=== PATIENT | male | born 1955 | race Caucasian/White ===

== ENCOUNTER 2017-03-22 10:56 | Emergency (ER) | payer OTHER ==
[2017-03-22 12:24] VITALS: BP 116/59
[2017-03-22] MEDS ORDERED: Insulin REGULAR(*) 1 UNITS UNIT SUBCUT ONE (13:06)
--- NOTE | 2017-03-22 13:11 | UC ---
General HPI - HPI Summary HPI Summary: 61 yo gentleman c/o "my legs hurt." Hx DM, HTN. C/o progressively worse redness and sores to both legs, since a couple weeks. Has been taking cephalexin per pcp x approx 13 days. Had similar event in December, improved with cephalexin, but this has not. No fever /chills perse. No sob / cp / palpitations. Hx chronic abd hernia, unchanged, not painful. Denies night- time arterial type claudication, but reports that his legs are hurting while sitting in his chair. Has been using mupirocin, but ran out. Has taken tramadol, to no avail. No report change in urinary habit. - History of Current Complaint Chief Complaint: Azael Stated Complaint: SORES ON LEGS-DIABETIC Time Seen by Provider: 03/22/17 12:14 Hx Obtained From: Patient - Allergy/Home Medications Allergies/Adverse Reactions: Allergies Allergy/AdvReac Type Severity Reaction Status Date / Time Lactose Intolerance (GI) Allergy GI Upset Verified 03/22/17 12:11 Latex Allergy Rash Verified 03/22/17 12:11 [place] Allergy See Comment Verified 03/22/17 12:11 Home Medications: Home Medications Amphetamine MIXED SALTS TAB* [Adderall TAB*] 30 mg PO DAILY 03/22/17 [History Confirmed 03/22/17] Atenolol TAB* [Tenormin TAB* 50 MG] 100 mg PO BEDTIME 03/22/17 [History Confirmed 03/22/17] Atorvastatin* [Lipitor*] 20 mg PO QPM 03/22/17 [History Confirmed 03/22/17] Cephalexin CAP* [Keflex CAP*] 500 mg PO QID 03/22/17 [History Confirmed 03/22/17 ] Furosemide TAB* [Lasix TAB*] 20 mg PO DAILY 03/22/17 [History Confirmed 03/22/17 ] Hydrocortisone 1% CREAM* [Hytone Cream 1%*] 1 applic TOPICAL BID 03/22/17 [ History Confirmed 03/22/17] Insulin GLARGINE(*) [Lantus(*)] 70 units SUBCUT BID 03/22/17 [History Confirmed 03/22/17] Insulin LISPRO* [HumaLOG*] 0 units SUBCUT DIRECTED 03/22/17 [History Confirmed 03/22/17] Lisinopril TAB* [Prinivil TAB*] 5 mg PO BEDTIME 03/22/17 [History Confirmed ] Mupirocin 2% CREAM* [Bactroban 2% CREAM*] 1 applic TOPICAL DAILY 03/22/17 [ History Confirmed 03/22/17] Pregabalin CAP(*) [Lyrica CAP(*)] 200 mg PO BID 03/22/17 [History Confirmed ] QUEtiapine TAB* [SEROquel TAB*] 900 mg PO BEDTIME 03/22/17 [History Confirmed ] traMADol TAB* [Ultram*] 50 mg PO Q12H PRN 03/22/17 [History Confirmed 03/22/17] PMH/Surg Hx/FS Hx/Imm Hx Previously Healthy: No - see hpi. previous admission 2/2 dka last year. - Surgical History Surgical History: Yes Surgery Procedure, Year, and Place: pyloric stenosis - Social History Alcohol Use: None Substance Use Type: None Smoking Status (MU): Never Smoked Tobacco Review of Systems Constitutional: Fatigue Skin: Rash Eyes: Negative ENT: Negative Respiratory: Negative Cardiovascular: Negative Gastrointestinal: Negative Genitourinary: Negative Motor: Negative Neurovascular: Negative Musculoskeletal: Edema, Other: - see hpi Neurological: Other - no issues reported Psychological: Negative Is Patient Immunocompromised?: Yes - hx dm All Other Systems Reviewed And Are Negative: Yes Physical Exam Triage Information Reviewed: Yes Appearance: Well-Nourished - sitting up. conversing easily and appropriately. NAD., Obese Vital Signs: Initial Vital Signs Temp 97.9 F 03/22/17 12:17 Pulse 75 03/22/17 12:17 Resp 16 03/22/17 12:17 BP 116/59 03/22/17 12:17 Pulse Ox 95 03/22/17 12:17 Vital Signs Reviewed: Yes Eye Exam: Normal - grossly normal ENT Exam: Normal - tongue with white material Neck exam: Normal Neck: Positive: Supple, Nontender Respiratory Exam: Normal Respiratory: Positive: Chest non-tender, Lungs clear, Normal breath sounds, No respiratory distress, No accessory muscle use Cardiovascular Exam: Normal Cardiovascular: Positive: RRR, No Murmur, Pulses Normal, Brisk Capillary Refill Abdominal Exam: Normal Abdomen Description: Positive: Hernia @ - abd wall hernia. nontender. obese. Musculoskeletal Exam: Other - BLE - ++ 1+ pitting edema. Feet bilat warm to touch + good cap refill. DP 1+ bilat, PT approx 1 bilat. BLE with + red blisters, weeping. + red skin and swelling. Calves approx similar dimensions. Johnny's not reliable 2/2 pain / swelling. Neurological Exam: Normal - nonfocal. detailed not done. ?? periph neuropathy Psychological Exam: Normal - grossly normal Skin Exam: Normal - see [facility] [place] Course/Dx - Course Course Of Treatment: BG > 400mg / dl FS glucose here. Repeat unchanged. I had a long conversation with Mr. Mendoza, he will benefit from transfer to the ED. After much consideration, he agrees to go to the ED, but adamantly declines EMS transport. AMA (for EMS) reviewed and signed. Insulin 10u SQ administered here. Pt's family will drive (in waiting room, he did not want them to be involved with exam or discussion here). Advised to go directly to the ED, and not to stop (for example for food / drink) on the way. Questions as posed answered to the best of my ability. 13:08 d/w Dr. Jensen at [facility] (pt requests [facility]). - Differential Dx - Multi-Symptom Provider Diagnoses: BLE cellulitis, outpatient abx po treatment failure. Chronic BLE ulcers, likely vsu. BLE evidence chronic venous htn. BLE edema. Hyperglycemia > 400mg / dl (uncontrolled dm) Discharge - Discharge Plan Condition: Guarded Disposition: AGAINST MEDICAL ADVICE Referrals: Kathi Quach MD [Primary Care Provider] -
== END 2017-03-22 13:18 | disposition left against medical advice (07) ==
LOC: UCCORT 10:56
DX: E11.65 Type 2 diabetes mellitus with hyperglycemia (principal); L03.116 Cellulitis of left lower limb; L03.115 Cellulitis of right lower limb; E11.622 Type 2 diabetes mellitus with other skin ulcer; L97.919 Non-pressure chronic ulcer of unspecified part of right lower leg with unspecified severity; L97.929 Non-pressure chronic ulcer of unspecified part of left lower leg with unspecified severity; I10 Essential (primary) hypertension; Z88.5 Allergy status to narcotic agent; Z91.040 Latex allergy status; Z79.4 Long term (current) use of insulin; Z91.011 Allergy to milk products
CPT/HCPCS: 96372; 99202; G0463

== ENCOUNTER 2019-11-24 13:12 | Inpatient (IN) ==
[2019-11-24] MEDS ORDERED: Propofol 10 MG/ML 20 ML BTL ONE (15:05)
[2019-11-24 15:54] LABS: Hematocrit 38 % (42-52); Hemoglobin 12.8 g/dL (14.0-18.0); Mean Corpuscular HGB Conc 34 g/dL (31-36); Mean Corpuscular Hemoglobin 30 pg (27-31); Mean Corpuscular Volume 88 fL (80-94); Platelet Count 274 10^3/uL (150-450); Red Blood Count 4.26 10^6 /uL (4.18-5.48); Red Cell Distribution Width 13 % (10-15); White Blood Count 6.1 10^3/uL (3.5-10.8)
[2019-11-24 15:55] LABS: Urine Appearance Cloudy; Urine Bilirubin Negative (Negative); Urine Blood Negative (Negative); Urine Color Yellow; Urine Glucose 3+(>=500 mg/dL) (Negative); Urine Ketones Negative (Negative); Urine Nitrite Negative (Negative); Urine Protein 2+(100 mg/dL) (Negative); Urine Specific Gravity 1.018 (1.010-1.030); Urine Urobilinogen Negative (Negative)
[2019-11-24 15:58] LABS: Urine Bacteria Absent (Absent); Urine Red Blood Cell Trace(0-2/hpf) (Absent); Urine White Blood Cell Trace(0-5/hpf) (Absent)
[2019-11-24] MEDS ORDERED: Insulin Infusion 100unit/100mL 100 UNIT/100 ML BAG IV SCH (16:00)
[2019-11-24 16:17] LABS: Albumin 2.4 g/dL (3.2-5.2); BUN/Creatinine Ratio 28.1 (8-20); EGFR African American 41.4 (>60); EGFR Non-African American 34.2 (>60); Globulin 2.5 g/dL (2-4); Magnesium 1.5 mg/dL (1.9-2.7); Phosphorus 3.9 mg/dL (2.5-5.0); Potassium 3.3 mmol/L (3.5-5.0); Total Bilirubin 0.3 mg/dL (0.2-1.0); Total Protein 4.9 g/dL (6.4-8.9)
[2019-11-24 16:19] LABS: Calcium 6.4 mg/dL (8.6-10.3)
[2019-11-24] MEDS: Norepinephrine 16MCG/ML IVPRE 4,000 MCG/250 ML BAG IV SCH ×2 (16:39→19:16)
[2019-11-24] MEDS: Pantoprazole VIAL 40 MG VIAL IV SCH ×2 (16:39→21:12)
[2019-11-24] MEDS: Propofol 10 mg/ml 100 ML BTL 100 ML IV SCH ×2 (16:40→23:08)
[2019-11-24] MEDS: Chlorhexidine MOUTHWASH 0.12% 15 ML UDC SWISH SPIT SCH ×2 (16:43→23:07)
[2019-11-24] MEDS ORDERED: Magnesium Sulfate 2 gm BAG 2 GM/50 ML BAG IVPB ONE (16:53)
[2019-11-24] MEDS ORDERED: NS 0.9% w/ 40 Meq KCL 1000 ML 1,000 ML IV SCH (17:00)
[2019-11-24] MEDS: KCL 20 MEQ/100 ML IVPREMIX 20 MEQ/100 ML BAG IV SCH ×3 (17:39→22:51)
[2019-11-24 17:42] LABS: BUN/Creatinine Ratio 28.2 (8-20); EGFR African American 42.4 (>60); Potassium 3.3 mmol/L (3.5-5.0)
[2019-11-24 17:49] LABS: Calcium 6.4 mg/dL (8.6-10.3)
[2019-11-24] MEDS ORDERED: Piperacillin/Tazobac ADVAN(*) 3.375 GM in NS 0.9% 100 ml BAG 100 ML IVPB ONE (18:00)
[2019-11-24] MEDS ORDERED: Zosyn per Pharmacy NOTE FOLLOW UP SCH (18:00)
[2019-11-24] MEDS ORDERED: Vasopressin 100 UNITS in D5W 250 ml BAG 245 ML IV SCH (19:30)
[2019-11-24 20:49] LABS: Calcium 6.6 mg/dL (8.6-10.3); Chloride 102 mmol/L (101-111); Sodium 125 mmol/L (135-145)
[2019-11-24 20:54] LABS: BUN/Creatinine Ratio 27.9 (8-20); Blood Urea Nitrogen 56 mg/dL (6-24); EGFR African American 40.9 (>60); EGFR Non-African American 33.8 (>60)
[2019-11-24 21:03] LABS: Anion Gap 13 mmol/L (2-11); CO2 Carbon Dioxide 10 mmol/L (22-32); Glucose 534 mg/dL (70-100)
[2019-11-24 21:05] LABS: ABS Eosinophils 1.1 10^3/ul (0-0.6); ABS Lymphocytes 1.3 10^3/ul (1.0-4.8); Eosinophil % 18.2 %; Hematocrit 37 % (42-52); Hemoglobin 12.4 g/dL (14.0-18.0); Lymphocyte % 21.3 %; Mean Corpuscular HGB Conc 34 g/dL (31-36); Mean Corpuscular Hemoglobin 29 pg (27-31); Mean Corpuscular Volume 87 fL (80-94); Mean Platelet Volume 8.7 fL (7.4-10.4); Nucleated Red Blood Cells % 0.1; Platelet Count 271 10^3/uL (150-450); Red Blood Count 4.21 10^6 /uL (4.18-5.48); Red Cell Distribution Width 13 % (10-15); White Blood Count 6.1 10^3/uL (3.5-10.8)
[2019-11-24] MEDS: Pregabalin 100 mg CAP (*) PO SCH (21:12)
[2019-11-24 21:30] LABS: Calcium 6.7 mg/dL (8.6-10.3); Potassium 3.9 mmol/L (3.5-5.0)
[2019-11-24 21:36] LABS: BUN/Creatinine Ratio 27.5 (8-20); EGFR African American 43.9 (>60); EGFR Non-African American 36.3 (>60)
[2019-11-24] MEDS: ZOSYN 3.375 GM Q8H per EXTENDED INFUSION IV SCH (21:56)
[2019-11-24] MEDS ORDERED: CALCIUM GLUCONATE 1GM/50ML NS 1 GM/50 ML BAG IV ONE (23:00)
[2019-11-24] MEDS ORDERED: NS 0.9% w/ 20 Meq KCL 1000 ml 1,000 ML IV SCH (23:00)
[2019-11-24] MEDS ORDERED: D5W 1/2 NS KCl 20 meq 1000 ml 1,000 ML IV SCH (23:45)
[2019-11-25] MEDS: Norepinephrine 16MCG/ML IVPRE 4,000 MCG/250 ML BAG IV SCH ×3 (00:13→06:50)
[2019-11-25 00:27] LABS: BUN/Creatinine Ratio 27.7 (8-20); Calcium 6.6 mg/dL (8.6-10.3); EGFR African American 45.3 (>60); EGFR Non-African American 37.5 (>60); Potassium 4.1 mmol/L (3.5-5.0)
[2019-11-25] MEDS ORDERED: Insulin GLARGINE 100 un/ml (*) 10 ml VIAL SUBCUT SCH ×2 (01:00→21:00)
[2019-11-25] MEDS ORDERED: NS 0.9% 1000 ml BAG 1,000 ML IV SCH (01:15)
[2019-11-25] MEDS ORDERED: Insulin REGULAR 100 unit/ml(*) SUBCUT SCH (02:00)
[2019-11-25] MEDS: Chlorhexidine MOUTHWASH 0.12% 15 ML UDC SWISH SPIT SCH ×6 (02:18→22:18)
[2019-11-25] MEDS: Insulin REGULAR 100 unit/ml(*) SUBCUT SCH ×3 (03:19→12:18)
[2019-11-25 04:26] LABS: ABS Eosinophils 1.3 10^3/ul (0-0.6); ABS Lymphocytes 1.5 10^3/ul (1.0-4.8); ABS Monocytes 1.3 10^3/ul (0-0.8); Eosinophil % 19.9 %; Hematocrit 34 % (42-52); Hemoglobin 11.7 g/dL (14.0-18.0); Lymphocyte % 22.7 %; Mean Corpuscular HGB Conc 34 g/dL (31-36); Mean Corpuscular Hemoglobin 30 pg (27-31); Mean Corpuscular Volume 87 fL (80-94); Mean Platelet Volume 8.7 fL (7.4-10.4); Nucleated Red Blood Cells % 0.1; Platelet Count 242 10^3/uL (150-450); Red Blood Count 3.96 10^6 /uL (4.18-5.48); Red Cell Distribution Width 13 % (10-15); White Blood Count 6.7 10^3/uL (3.5-10.8)
[2019-11-25 04:41] LABS: Albumin 2.3 g/dL (3.2-5.2); BUN/Creatinine Ratio 26.6 (8-20); Calcium 6.6 mg/dL (8.6-10.3); EGFR African American 47.4 (>60); EGFR Non-African American 39.2 (>60); Globulin 2.2 g/dL (2-4); Magnesium 1.9 mg/dL (1.9-2.7); Phosphorus 3.3 mg/dL (2.5-5.0); Potassium 4.3 mmol/L (3.5-5.0); Total Bilirubin 0.2 mg/dL (0.2-1.0); Total Protein 4.5 g/dL (6.4-8.9)
[2019-11-25] MEDS ORDERED: Insulin REGULAR 100 unit/ml(*) SUBCUT ONE (05:11)
[2019-11-25] MEDS ORDERED: Insulin REGULAR 100 unit/ml(*) ONE (05:21)
[2019-11-25] MEDS: NS 0.9% 1000 ml BAG 1,000 ML IV SCH ×3 (05:26→18:24)
[2019-11-25] MEDS: ZOSYN 3.375 GM Q8H per EXTENDED INFUSION IV SCH ×3 (06:13→22:18)
[2019-11-25] MEDS: Pantoprazole VIAL 40 MG VIAL IV SCH ×2 (08:02→20:24)
[2019-11-25] MEDS: Pregabalin 100 mg CAP (*) PO SCH ×2 (08:06→20:23)
[2019-11-25] MEDS: D5W 1/2 NS 1000 ml BAG 1,000 ML IV SCH ×2 (09:11→17:06)
[2019-11-25] MEDS: Propofol 10 mg/ml 100 ML BTL 100 ML IV SCH (12:19)
[2019-11-25] MEDS: metroNIDAZOLE IV 500 MG/100ML 500 MG/100 ML BAG IVPB SCH (15:45)
[2019-11-25] MEDS: Vancomycin SOL ORALSYR 50 MG/ML ML PO SCH ×3 (16:39→20:23)
[2019-11-25] MEDS: Insulin LISPRO 100 units/ml(*) SUBCUT SCH (18:27)
[2019-11-26] MEDS: Norepinephrine 16MCG/ML IVPRE 4,000 MCG/250 ML BAG IV SCH (00:05)
[2019-11-26] MEDS: metroNIDAZOLE IV 500 MG/100ML 500 MG/100 ML BAG IVPB SCH ×4 (00:06→23:47)
[2019-11-26] MEDS: Insulin LISPRO 100 units/ml(*) SUBCUT SCH ×5 (00:06→22:19)
[2019-11-26] MEDS: Chlorhexidine MOUTHWASH 0.12% 15 ML UDC SWISH SPIT SCH ×4 (03:00→13:53)
[2019-11-26 05:28] LABS: ABS Eosinophils 1.3 10^3/ul (0-0.6); ABS Monocytes 1.1 10^3/ul (0-0.8); Eosinophil % 21.2 %; Hematocrit 30 % (42-52); Lymphocyte % 16.3 %; Mean Corpuscular HGB Conc 34 g/dL (31-36); Mean Corpuscular Hemoglobin 30 pg (27-31); Mean Corpuscular Volume 87 fL (80-94); Mean Platelet Volume 8.2 fL (7.4-10.4); Platelet Count 176 10^3/uL (150-450); Red Blood Count 3.37 10^6 /uL (4.18-5.48); Red Cell Distribution Width 14 % (10-15); White Blood Count 6.3 10^3/uL (3.5-10.8)
[2019-11-26 05:37] LABS: BUN/Creatinine Ratio 18.3 (8-20); EGFR African American 40.7 (>60); EGFR Non-African American 33.6 (>60); Magnesium 1.9 mg/dL (1.9-2.7); Phosphorus 3.4 mg/dL (2.5-5.0); Potassium 3.6 mmol/L (3.5-5.0)
[2019-11-26] MEDS ORDERED: Dextrose 50% Syringe 50 ml 25 GM/50 ML SYRINGE ONE ×2 (06:05→22:27)
[2019-11-26] MEDS: ZOSYN 3.375 GM Q8H per EXTENDED INFUSION IV SCH ×3 (06:10→22:19)
[2019-11-26] MEDS ORDERED: Dextrose 50% Syringe 50 ml 25 GM/50 ML SYRINGE IV PUSH ONE (06:30)
[2019-11-26] MEDS: Dextrose 50% Syringe 50 ml 25 GM/50 ML SYRINGE IV PUSH PRN ×3 (07:39→22:30)
[2019-11-26] MEDS: Vancomycin SOL ORALSYR 50 MG/ML ML PO SCH ×4 (07:46→20:30)
[2019-11-26] MEDS: Pregabalin 100 mg CAP (*) PO SCH ×2 (07:46→20:29)
[2019-11-26] MEDS: Pantoprazole VIAL 40 MG VIAL IV SCH ×2 (07:46→20:29)
[2019-11-26] MEDS: Propofol 10 mg/ml 100 ML BTL 100 ML IV SCH (09:31)
[2019-11-26] MEDS: NS 0.9% 1000 ml BAG 1,000 ML IV SCH (09:48)
[2019-11-26] MEDS ORDERED: D5W 1000 ml BAG 1,000 ML IVPB SCH (10:00)
[2019-11-26] MEDS: D5W 1000 ml BAG 1,000 ML IVPB SCH (22:34)
[2019-11-27] MEDS: Insulin LISPRO 100 units/ml(*) SUBCUT SCH ×6 (01:39→22:28)
[2019-11-27 04:50] LABS: ABS Basophils 0.1 10^3/ul (0-0.2); ABS Eosinophils 1.4 10^3/ul (0-0.6); ABS Lymphocytes 0.8 10^3/ul (1.0-4.8); ABS Monocytes 0.8 10^3/ul (0-0.8); Eosinophil % 20.2 %; Hematocrit 32 % (42-52); Hemoglobin 10.6 g/dL (14.0-18.0); Lymphocyte % 12.5 %; Mean Corpuscular HGB Conc 33 g/dL (31-36); Mean Corpuscular Hemoglobin 29 pg (27-31); Mean Corpuscular Volume 88 fL (80-94); Mean Platelet Volume 8.5 fL (7.4-10.4); Platelet Count 192 10^3/uL (150-450); Red Blood Count 3.61 10^6 /uL (4.18-5.48); Red Cell Distribution Width 14 % (10-15); White Blood Count 6.8 10^3/uL (3.5-10.8)
[2019-11-27 05:06] LABS: BUN/Creatinine Ratio 13.5 (8-20); Calcium 7.4 mg/dL (8.6-10.3); EGFR African American 39.6 (>60); EGFR Non-African American 32.7 (>60); Magnesium 1.9 mg/dL (1.9-2.7); Phosphorus 3.6 mg/dL (2.5-5.0); Potassium 3.5 mmol/L (3.5-5.0)
[2019-11-27] MEDS: ZOSYN 3.375 GM Q8H per EXTENDED INFUSION IV SCH ×2 (05:50→14:49)
[2019-11-27] MEDS ORDERED: Dextrose 50% Syringe 50 ml 25 GM/50 ML SYRINGE ONE ×2 (06:33→22:23)
[2019-11-27] MEDS: Dextrose 50% Syringe 50 ml 25 GM/50 ML SYRINGE IV PUSH PRN ×2 (06:34→22:25)
[2019-11-27] MEDS: metroNIDAZOLE IV 500 MG/100ML 500 MG/100 ML BAG IVPB SCH (08:14)
[2019-11-27] MEDS: Pantoprazole VIAL 40 MG VIAL IV SCH (08:32)
[2019-11-27] MEDS: Vancomycin SOL ORALSYR 50 MG/ML ML PO SCH ×5 (08:32→21:47)
[2019-11-27] MEDS: Pregabalin 100 mg CAP (*) PO SCH ×2 (08:32→21:47)
[2019-11-27] MEDS: D5W 1000 ml BAG 1,000 ML IVPB SCH ×2 (10:18→20:46)
[2019-11-27] MEDS ORDERED: Sodium Bicarbonate 8.4% SYR 50 ml SYRINGE IV ONE (13:29)
[2019-11-28] MEDS: ZOSYN 3.375 GM Q8H per EXTENDED INFUSION IV SCH ×3 (02:08→17:47)
[2019-11-28] MEDS: Insulin LISPRO 100 units/ml(*) SUBCUT SCH ×6 (02:27→21:52)
[2019-11-28 05:23] LABS: Hematocrit 34 % (42-52); Hemoglobin 11.6 g/dL (14.0-18.0); Mean Corpuscular HGB Conc 34 g/dL (31-36); Mean Corpuscular Hemoglobin 30 pg (27-31); Mean Corpuscular Volume 87 fL (80-94); Mean Platelet Volume 8.3 fL (7.4-10.4); Platelet Count 232 10^3/uL (150-450); Red Blood Count 3.92 10^6 /uL (4.18-5.48); Red Cell Distribution Width 14 % (10-15); White Blood Count 8.9 10^3/uL (3.5-10.8)
[2019-11-28 05:38] LABS: BUN/Creatinine Ratio 10.1 (8-20); Blood Urea Nitrogen 19 mg/dL (6-24); CO2 Carbon Dioxide 20 mmol/L (22-32); Calcium 7.8 mg/dL (8.6-10.3); EGFR African American 43.9 (>60); EGFR Non-African American 36.3 (>60); Glucose 143 mg/dL (70-100); Sodium 141 mmol/L (135-145)
[2019-11-28 05:58] LABS: Chloride 117 mmol/L (101-111)
[2019-11-28 06:02] LABS: Anion Gap 4 mmol/L (2-11)
[2019-11-28 06:04] LABS: ABS Basophils 0.1 10^3/ul (0-0.2); ABS Eosinophils 1.9 10^3/ul (0-0.6); ABS Lymphocytes 1.2 10^3/ul (1.0-4.8); ABS Monocytes 0.9 10^3/ul (0-0.8); Eosinophil % 22.5 %
[2019-11-28] MEDS: D5W 1000 ml BAG 1,000 ML IVPB SCH (06:23)
[2019-11-28] MEDS: Pregabalin 100 mg CAP (*) PO SCH ×2 (08:45→21:36)
[2019-11-28] MEDS: Pantoprazole VIAL 40 MG VIAL IV SCH (08:45)
[2019-11-28] MEDS: Vancomycin SOL ORALSYR 50 MG/ML ML PO SCH ×4 (08:45→21:38)
[2019-11-28] MEDS ORDERED: oxyCODONE/Acetamin 5/325 mg TAB PO ONE (13:45)
[2019-11-28] MEDS: Heparin 5000 UNITS/ML VIAL(*) 1 ml vial SUBCUT SCH ×2 (13:57→21:39)
[2019-11-28] MEDS: Mometasone 220 MCG MDI INH SCH (19:19)
[2019-11-29] MEDS: ZOSYN 3.375 GM Q8H per EXTENDED INFUSION IV SCH ×3 (02:08→17:29)
[2019-11-29] MEDS: Insulin LISPRO 100 units/ml(*) SUBCUT SCH ×5 (02:15→21:10)
[2019-11-29] MEDS: Heparin 5000 UNITS/ML VIAL(*) 1 ml vial SUBCUT SCH (06:36)
[2019-11-29] MEDS: Amphetamine MIXED SALT 10mgTAB PO SCH (11:06)
[2019-11-29] MEDS: Pregabalin 100 mg CAP (*) PO SCH ×2 (11:08→21:05)
[2019-11-29] MEDS: Enoxaparin 40 MG/0.4 ML SYR(*) SUBCUT SCH (11:09)
[2019-11-29] MEDS: Fluticasone NASAL SPRAY 50MCG 16 gm SPRAY BTL INTRANASAL SCH (11:10)
[2019-11-29] MEDS: Vancomycin SOL ORALSYR 50 MG/ML ML PO SCH ×4 (11:10→21:04)
[2019-11-29] MEDS: Pantoprazole VIAL 40 MG VIAL IV SCH (11:33)
[2019-11-29] MEDS: Insulin GLARGINE 100 un/ml (*) 10 ml VIAL SUBCUT SCH (14:10)
[2019-11-29] MEDS: Mometasone 220 MCG MDI INH SCH (19:30)
[2019-11-30] MEDS: ZOSYN 3.375 GM Q8H per EXTENDED INFUSION IV SCH (03:11)
[2019-11-30 06:45] LABS: Hematocrit 33 % (42-52); Hemoglobin 11.2 g/dL (14.0-18.0); Mean Corpuscular HGB Conc 34 g/dL (31-36); Mean Corpuscular Hemoglobin 30 pg (27-31); Mean Corpuscular Volume 88 fL (80-94); Mean Platelet Volume 7.6 fL (7.4-10.4); Platelet Count 246 10^3/uL (150-450); Red Blood Count 3.75 10^6 /uL (4.18-5.48); Red Cell Distribution Width 14 % (10-15); White Blood Count 10.4 10^3/uL (3.5-10.8)
[2019-11-30 06:49] LABS: ABS Basophils 0.2 10^3/ul (0-0.2); ABS Eosinophils 2.2 10^3/ul (0-0.6); ABS Lymphocytes 2.4 10^3/ul (1.0-4.8); ABS Monocytes 1.1 10^3/ul (0-0.8); Eosinophil % 21.5 %
[2019-11-30 06:50] LABS: Hematocrit 33 % (42-52); Hemoglobin 11.3 g/dL (14.0-18.0); Mean Corpuscular HGB Conc 35 g/dL (31-36); Mean Corpuscular Hemoglobin 30 pg (27-31); Mean Corpuscular Volume 87 fL (80-94); Mean Platelet Volume 8.1 fL (7.4-10.4); Platelet Count 264 10^3/uL (150-450); Red Blood Count 3.74 10^6 /uL (4.18-5.48); Red Cell Distribution Width 14 % (10-15); White Blood Count 10.7 10^3/uL (3.5-10.8)
[2019-11-30 06:51] LABS: ABS Eosinophils 2.4 10^3/ul (0-0.6); ABS Lymphocytes 2.4 10^3/ul (1.0-4.8); ABS Monocytes 1.1 10^3/ul (0-0.8); Eosinophil % 22.7 %; Lymphocyte % 22.5 %
[2019-11-30 06:58] LABS: Calcium 7.8 mg/dL (8.6-10.3); Magnesium 1.6 mg/dL (1.9-2.7); Potassium 3.6 mmol/L (3.5-5.0)
[2019-11-30] MEDS ORDERED: Magnesium Sulfate 2 gm BAG 2 GM/50 ML BAG IVPB ONE (07:00)
[2019-11-30 07:04] LABS: BUN/Creatinine Ratio 9.3 (8-20); EGFR African American 40.2 (>60); EGFR Non-African American 33.3 (>60)
[2019-11-30 08:15] VITALS: BP 148/75
[2019-11-30] MEDS: Insulin LISPRO 100 units/ml(*) SUBCUT SCH (08:16)
[2019-11-30] MEDS: Amphetamine MIXED SALT 10mgTAB PO SCH (08:27)
[2019-11-30] MEDS: Pregabalin 100 mg CAP (*) PO SCH (08:27)
[2019-11-30] MEDS: Fluticasone NASAL SPRAY 50MCG 16 gm SPRAY BTL INTRANASAL SCH (08:37)
[2019-11-30] MEDS: Enoxaparin 40 MG/0.4 ML SYR(*) SUBCUT SCH (10:35)
[2019-11-30] MEDS: Insulin GLARGINE 100 un/ml (*) 10 ml VIAL SUBCUT SCH (10:35)
[2019-11-30] MEDS: Vancomycin SOL ORALSYR 50 MG/ML ML PO SCH (10:38)
== END 2019-11-30 11:40 | disposition home or self-care (01) | DRG 720 ==
LOC: ICU 15:30 → MED 11-28 17:10
PROVIDERS: ADMIT Surgery Surgical Critical Care; ATTEND Hospitalist